=== PATIENT | female | born 1935 | race Caucasian/White ===

== ENCOUNTER 2024-05-25 12:16 | Emergency (ER) | payer MEDICARE, OTHER ==
[~2024-05-25] VITALS: Ht 162.6 cm; Wt 104.3 kg
[2024-05-25] MEDS: HYDROCODONE/APAP 5/325MG TABLET PO ONE (13:00)
[2024-05-25] MEDS: KETOROLAC TROMETHAMINE 15 MG/ML VIAL IM ONE (13:00)
[2024-05-25] MEDS ORDERED: HYDROCODONE/APAP 5/325MG TABLET ONE (13:04)
[2024-05-25] MEDS ORDERED: KETOROLAC TROMETHAMINE INJ 30 MG/ML VIAL ONE (13:04)
[2024-05-25] MEDS ORDERED: KETO10TA2 PO (14:52)
[2024-05-25 15:24] VITALS: BP 138/82; TEMP 98; O2SAT 98
== END 2024-05-25 15:26 | disposition home or self-care (01) ==
LOC: ER 12:24
DX: M17.11 Unilateral primary osteoarthritis, right knee (principal); I10 Essential (primary) hypertension
CPT/HCPCS: 73564-TC; J1885